=== PATIENT | female | born 1955 | race Caucasian/White ===

== ENCOUNTER 2017-11-24 00:45 | Emergency (ER) | payer OTHER ==
[~2017-11-24] VITALS: Ht 165.1 cm; Wt 86.2 kg
[2017-11-24 00:52] VITALS: BP 173/85
--- NOTE | 2017-11-24 01:46 | ED NOSE COMPLAINT ---
History of Present Illness General Chief Complaint: Epistaxis/Nasal Foreign Body Stated Complaint: NOSEBLEED Source: patient, family Exam Limitations: no limitations Vital Signs & Intake/Output Vital Signs & Intake/Output Vital Signs Date Time Temp Pulse Resp B/P B/P Pulse O2 O2 Flow FiO2 Mean Ox Delivery Rate 11/24 0052 90 18 173/85 96 Room Air Allergies Uncoded Allergies: ANTIHISTAMINE (09/27/12) Triage Note: 62YO FEMALE TO RM 1 W/CO INTERMITTENT NOSE BLEED SINCE MONDAY. STATES SHE "TAKES BABY ASA DAILY AND WAS SEEN AT [facility] ON MONDAY, HAD IT PACKED AND INSTRUCTED TO TAKE PACKING OUT IN 4 HRS" STATES AFTER PACKING REMOVED, BLEEDING BAGAN AGAIN. Triage Nurses Notes Reviewed? yes Onset: Abrupt Duration: hour(s):, constant, continues in ED, getting worse HPI: Patient presents for evaluation of intermittent nosebleeding episodes of began on Monday. Patient states that she has been evaluated at a walk-in clinic and they placed a gauze pledget in her nose that she was instructed to remove after a few hours. After removal the nose began bleeding again. She states that her nose has been bleeding since about 5:30 this afternoon, worsened by blowing the nose. She denies use of anticoagulants and denies any history of trauma to her nose. Past History Travel History Traveled to [place] past 21 day No Medical History Any Pertinent Medical History? see below for history Neurological: NONE EENT: NONE Cardiovascular: hypertension Respiratory: NONE Gastrointestinal: NONE Hepatic: NONE Renal: NONE Musculoskeletal: NONE Psychiatric: anxiety, depression Endocrine: NONE Surgical History Surgical History: non-contributory Psychosocial History Who do you live with Spouse What is your primary language Estonian Tobacco Use: Never used Family History Hx Contributory? No Review of Systems Review of Systems Constitutional: Reports: no symptoms. EENTM: Reports: see HPI. Respiratory: Reports: no symptoms. Cardiovascular: Reports: no symptoms. GI: Reports: no symptoms. Genitourinary: Reports: no symptoms. Musculoskeletal: Reports: no symptoms. Skin: Reports: no symptoms. Neurological/Psychological: Reports: no symptoms. Hematologic/Endocrine: Reports: no symptoms. Immunologic/Allergic: Reports: no symptoms. All Other Systems: Reviewed and Negative Physical Exam Physical Exam Nose: SEE BELOW Comments: Gen.: Well-nourished, well-developed, no acute respiratory distress. Head: Normocephalic, atraumatic. Eyes: Normal inspection bilaterally Ears: Normal inspection bilaterally Nose: Right nostril with mild red blood but a normal-appearing anterior septum. Throat/mouth : Moist mucosa Neck: Supple, full range of motion, no goiter Lungs: Quiet respirations Back: Normal range of motion Extremities: Normal range of motion grossly, no cyanosis clubbing or edema of the upper extremities Neurologic: Cranial nerves grossly intact, speech is clear Skin: warm and dry Psychiatric: Calm, cooperative, no apparent delusions or hallucinations Progress Differential Diagnoses I considered the following diagnoses in my evaluation of the patient: Plan of Care: FOLLOW UP WITH ENT. Initial ED EKG: none Comments: 11/24/2017 1:43:32 AM patient was unable to tolerate a Rhino rocket. She agrees that it is unlikely she could tolerate other mechanical control methods such as Murocel or traditional puzzling gauze packing. She likewise passed on installation of thrombin. She prefers instead to see if this won't resolve spontaneously. Departure Departure Disposition: HOME OR SELF CARE Condition: Stable Clinical Impression Primary Impression: Epistaxis Referrals: Chao PYLE,Leonides Alegre (PCP/Family) Additional Instructions: Pinch your nostrils together as discussed for any further nose bleeding episodes. Keep the nostrils moist using nasal sprays. Follow-up with the ear nose and throat doctor listed tomorrow if her nose bleeding persists. Return immediately if any concerns or sudden worsening. Departure Forms: Customer Survey General Discharge Information
== END 2017-11-24 01:52 ==
LOC: ERH 00:45
DX: R04.0 Epistaxis (principal)